=== PATIENT | female | born 1970 | race Caucasian/White ===

== ENCOUNTER 2017-11-06 12:56 | Emergency (ER) | payer OTHER ==
[2017-11-06] MEDS ORDERED: IBUPROFEN 600 MG TAB PO STA (13:29)
--- NOTE | 2017-11-06 13:32 | ED ---
General Adult HPI - General Chief complaint: Headache Stated complaint: Weakness, Headache, Nauseated Time Seen by Provider: 11/06/17 13:17 Source: patient, RN notes reviewed Mode of arrival: ambulatory Limitations: no limitations - History of Present Illness Initial comments: 47-year-old female presents to the emergency department with a chief complaint of cough congestion bodyaches headache. She states she just feels rundown and tired. She states she's had no nausea or vomiting with this. She states normal bowel movement bladder habits. Patient states that she just has not been feeling much better so she thought that she should be seen. Patient states that she started about 2 weeks ago feeling crappy, congestion bodyaches of gotten worse over the last 2 days. She has not noticed any high fevers. Patient denies any recent shortness of breath, chest pain, back pain, abdominal pain, nausea vomiting, numbness or tingling, dysuria or hematuria, constipation or diarrhea, visual changes, or any other current symptoms. - Related Data Home Medications Medication Instructions Recorded Confirmed Omeprazole [Omeprazole] 20 mg PO DAILY 04/23/16 11/06/17 Albuterol Inhaler [Ventolin Hfa 2 puff INHALATION RT-QID PRN 11/06/17 11/06/17 Inhaler] Ascorbic Acid [Vitamin C] 1,000 mg PO DAILY 11/06/17 11/06/17 Beclomethasone Dipropionate [Qvar 2 puff INHALATION RT-BID 11/06/17 11/06/17 80 mcg] Cholecalciferol (Vitamin D3) 2,000 unit PO DAILY 11/06/17 11/06/17 [Vitamin D3] Cold-Eeze 1 lozenge MUCOUS MEM DAILY PRN 11/06/17 11/06/17 Fluticasone Nasal [place] [Flonase 2 spr EA NOSTRIL DAILY 11/06/17 11/06/17 Nasal [place]] Gabapentin [Neurontin] 300 mg PO QID 11/06/17 11/06/17 HYDROcodone/APAP 10-325MG [[place] 1 tab PO Q8H PRN 11/06/17 11/06/17 10-325] Ipratropium-Albuterol Nebulize 3 ml INHALATION RT-TID PRN 11/06/17 11/06/17 [Duoneb 0.5 mg-3 mg/3 ml Soln] LORazepam [Ativan] 0.5 mg PO TID 11/06/17 11/06/17 Levothyroxine Sodium [Synthroid] 25 mcg PO QAM 11/06/17 11/06/17 Magnesium Oxide [Mag-Ox] 400 mg PO DAILY 11/06/17 11/06/17 Meloxicam 15 mg PO DAILY 11/06/17 11/06/17 Methocarbamol [Robaxin] 500 - 1,000 mg PO Q6H PRN 11/06/17 11/06/17 Montelukast [Singulair] 10 mg PO DAILY 11/06/17 11/06/17 Polyethylene Glycol 3350 [Clearlax] 17 gm PO DAILY 11/06/17 11/06/17 buPROPion HCL [Wellbutrin XL] 300 mg PO DAILY 11/06/17 11/06/17 traZODone HCL 50 mg PO HS 11/06/17 11/06/17 Previous Rx's Medication Instructions Recorded Oseltamivir [Tamiflu] 75 mg PO Q12HR #10 cap 11/06/17 Allergies Allergy/AdvReac Type Severity Reaction Status Date / Time No Known Allergies Allergy Verified 11/06/17 13:59 Review of Systems ROS Statement: Those systems with pertinent positive or pertinent negative responses have been documented in the HPI. ROS Other: All systems not noted in ROS Statement are negative. Past Medical History Past Medical History: COPD, Fibromyalgia, Osteoarthritis (OA) Additional Past Medical History / Comment(s): neck pain, back pain, carpal tunnel History of Any Multi-Drug Resistant Organisms: None Reported Past Surgical History: Orthopedic Surgery Past Psychological History: Anxiety, Depression Smoking Status: Never smoker Past Alcohol Use History: None Reported Past Drug Use History: Marijuana General Exam - General Exam Comments Initial Comments: General exam: Alert, active, comfortable in no apparent distress Head: Normocephalic Eyes: Normal reaction of pupils, equal size, normal range of extraocular motion Ears: normal external ear canals, pink tympanic membranes with normal cone of light Nose: clear with pink turbinates Throat: no erythema or exudates with normal sized tonsils Neck: no masses, no nuchal rigidity Chest: no chest wall deformity Lungs: equal air entry with no crackles or wheeze CVS: S1 and S2 normal with no audible mumurs, regular rhythm Abdomen: no hepatosplenomegaly, normal bowel sounds, no guarding or rigidity Spine: no scoliosis or deformity Skin: no rashes Neurological: No focal deficits, tone is normal in all 4 extremities Limitations: no limitations Course Vital Signs 11/06/17 13:06 Temperature 98.8 F Pulse Rate 90 Respiratory 20 Rate Blood Pressure 123/90 O2 Sat by Pulse 98 Oximetry Medical Decision Making - Medical Decision Making 47 yo female presents for cough congestion and body aches. At this time patient is positive for influenza A. This time we will start her on Tamiflu. We did discuss follow-up return parameters all questions. Patient is in agreement this plan. All questions have been answered. She'll be discharged. - Lab Data Lab Results 11/06/17 Range/Units 13:36 Influenza Type A RNA Detected H (Not Detectd) Influenza Type B (PCR) Not Detected (Not Detectd) - Radiology Data Radiology results: report reviewed, image reviewed Disposition Clinical Impression: Influenza A Disposition: HOME SELF-CARE Condition: Stable Instructions: Influenza (ED) Additional Instructions: Please use medication as discussed. Please follow up with family doctor if symptoms have not improved over the next two days. Please return to the emergency room if your symptoms increase or worsen or for any other concerns. Prescriptions: Oseltamivir [Tamiflu] 75 mg PO Q12HR #10 cap Referrals: Ryan Mccoy MD [Primary Care Provider] - 1-2 days Time of Disposition: 14:25
--- NOTE | 2017-11-06 13:46 | XR ---
EXAMINATION TYPE: XR chest 2V DATE OF EXAM: 11/06/2017 COMPARISON: NONE TECHNIQUE: PA and lateral views submitted. HISTORY: cough FINDINGS: The lungs are clear and there is no pneumothorax, pleural effusion, or focal pneumonia. Postsurgica l change overlying the cervical spine. Arthropathy of the shoulders. Hyperinflation suggests COPD. Hy pertrophic and degenerative change of the spine. No overt failure. IMPRESSION: 1. No acute process. Correlate for COPD.
[2017-11-06 14:33] VITALS: BP 104/58; PULSE 78; RESP 16; TEMP 98.3
== END 2017-11-06 14:32 | disposition home or self-care (01) ==
LOC: EC 12:56
DX: J10.1 Influenza due to other identified influenza virus with other respiratory manifestations (principal); J44.9 Chronic obstructive pulmonary disease, unspecified; M79.7 Fibromyalgia; M19.90 Unspecified osteoarthritis, unspecified site; F32.9 Major depressive disorder, single episode, unspecified; F41.9 Anxiety disorder, unspecified; Z79.51 Long term (current) use of inhaled steroids; Z79.1 Long term (current) use of non-steroidal anti-inflammatories (NSAID); Z79.899 Other long term (current) drug therapy
CPT/HCPCS: 71046; 87502; 99284

== ENCOUNTER → 2018-09-27 | Outpatient (CLI) | payer OTHER ==
--- NOTE | 2018-09-27 15:42 | US ---
EXAMINATION TYPE: US pelvis complete transvag DATE OF EXAM: 09/27/2018 COMPARISON: CT CLINICAL HISTORY: N95.0 Post menopausal bleeding. Pt states episode of vaginal spotting/ LMP 2-3 year s ago/ Pt not on HRT's TECHNIQUE: Transvaginal (TV) and Transabdominal (TA) . Transabdominal sonographic images of the pel vis were acquired. Transvaginal sonographic images were medically necessary to better assess the fol lowing anatomy: Uterus, ovaries, endometrium Date of LMP: 2-3 years ago EXAM MEASUREMENTS: Uterus: 6.6 x 3.2 x 5.0 cm Endometrial Stripe: 0.5 cm Left Ovary: 1.7 x 1.4 x 1.4 cm 1. Uterus: Anteverted wnl 2. Endometrium: wnl 3. Right Ovary: Obscured by overlying bowel gas 4. Left Ovary: wnl 5. Bilateral Adnexa: wnl 6. Posterior cul-de-sac: wnl IMPRESSION: No distinct abnormality appreciated.
== END ==
LOC: RADUSWWP 14:27
PROVIDERS: ATTEND Obstetrics & Gynecology
DX: N95.0 Postmenopausal bleeding (principal)
CPT/HCPCS: 76830; 76856

== ENCOUNTER → 2018-10-22 | Outpatient (CLI) | payer OTHER ==
[2018-10-22 11:45] LABS: Basophils % (A) 0 %; Eosinophils # (A) 0.1 k/uL (0-0.7); Eosinophils % (A) 1 %; HCT 41.1 % (34.0-46.0); HGB 13.5 gm/dL (11.4-16.0); Lymphocytes # (A) 2.3 k/uL (1.0-4.8); Lymphocytes % (A) 31 %; MCH 30.5 pg (25.0-35.0); MCHC 32.8 g/dL (31.0-37.0); MCV 92.9 fL (80.0-100.0); Mean Platelet Volume 7.1; Monocytes # (A) 0.5 k/uL (0-1.0); Monocytes % (A) 7 %; Neutrophils # (A) 4.4 k/uL (1.3-7.7); Neutrophils % (A) 58 %; Platelet Count 242 k/uL (150-450); RBC 4.43 m/uL (3.80-5.40); RDW 13.4 % (11.5-15.5); WBC 7.6 k/uL (3.8-10.6)
== END ==
LOC: LABPAT 10:47
PROVIDERS: ATTEND Obstetrics & Gynecology
DX: Z01.812 Encounter for preprocedural laboratory examination (principal)
CPT/HCPCS: 36415; 85025

== ENCOUNTER 2018-11-04 10:53 | Day surgery (SDC) | payer OTHER ==
[2018-10-31 14:58] VITALS: BMI 29.9
[~2018-11-04 10:53] MED LIST: DEXAMETHASONE SOD PHOSPHATE 10 MG/ML 1 ML VIAL IV ONE; LACTATED RINGERS 1,000 ML IV SCH; LIDOCAINE 1% 20 ML VIAL (10MG/ML) FOR IV START INTRADERMA PRN; MIDAZOLAM (PF) 2 MG/2 ML VIAL IV PRN; Pre Op ABX Message 1 EACH MISC MISCELLANE ONE
[2018-11-04] MEDS ORDERED: LIDOCAINE 1% 20 ML VIAL (10MG/ML) FOR IV START SQ ONE (11:35)
[2018-11-04] MEDS ORDERED: ONDANSETRON 4 MG/2 ML VIAL IVP ONE ×2 (11:42→13:05)
--- NOTE | 2018-11-04 12:09 | P.HPOB ---
History of Present Illness H&P Date: 11/04/18 Chief Complaint: Postmenopausal bleeding Patient is a 48-year-old female who has had no menses in approximately 3 years but then in August began to have some vaginal bleeding. An ultrasound was ordered and did show a 5 mm lining which is minimally thickened but she did bleed shortly prior to her ultrasound therefore it may be falsely in her than what we expect. She is therefore scheduled for a D&C with hysteroscopy we did discuss possibility do an endometrial biopsy but she would prefer more definitive sampling. Risks/benefits/alternatives were discussed with the patient in detail and all questions were answered for her prior to proceeding to the operative room. Physical exam vital signs are stable and afebrile. Heart regular, lungs clear, extremities are without pain. Abdomen soft nontender pelvic exam is otherwise unremarkable. Past Medical History Past Medical History: Chest Pain / Angina, COPD, Fibromyalgia, GERD/Reflux, Osteoarthritis (OA), Thyroid Disorder Additional Past Medical History / Comment(s): heart tests came back ok per pt, insomnia, History of Any Multi-Drug Resistant Organisms: None Reported Past Surgical History: Cholecystectomy, Orthopedic Surgery, Tubal Ligation Additional Past Surgical History / Comment(s): cervical fusion, planter wart removed from rt foot Past Anesthesia/Blood Transfusion Reactions: Motion Sickness Smoking Status: Never smoker - Past Family History Brother(s) Family Medical History: Deep Vein Thrombosis (DVT) Medications and Allergies Home Medications Medication Instructions Recorded Confirmed Type Omeprazole 20 mg PO DAILY 04/23/16 11/04/18 History Albuterol Inhaler [Ventolin Hfa 2 puff INHALATION QID PRN 11/06/17 11/04/18 History Inhaler] Cholecalciferol (Vitamin D3) 2,000 unit PO DAILY 11/06/17 11/04/18 History [Vitamin D3] Fluticasone Nasal [place] [Flonase 2 spr EA NOSTRIL DAILY 11/06/17 11/04/18 History Nasal [place]] Gabapentin [Neurontin] 300 mg PO QID 11/06/17 11/04/18 History HYDROcodone/APAP 10-325MG [[place] 1 tab PO Q8H PRN 11/06/17 11/04/18 History 10-325] Ipratropium-Albuterol Nebulize 3 ml INHALATION TID PRN 11/06/17 11/04/18 History [Duoneb 0.5 mg-3 mg/3 ml Soln] LORazepam [Ativan] 0.5 mg PO TID 11/06/17 11/04/18 History Levothyroxine Sodium [Synthroid] 25 mcg PO QAM 11/06/17 11/04/18 History Magnesium Oxide [Mag-Ox] 400 mg PO DAILY 11/06/17 11/04/18 History Meloxicam 15 mg PO DAILY 11/06/17 11/04/18 History Methocarbamol [Robaxin] 500 - 1,000 mg PO Q6H PRN 11/06/17 11/04/18 History Montelukast [Singulair] 10 mg PO HS 11/06/17 11/04/18 History buPROPion HCL [Wellbutrin XL] 300 mg PO DAILY 11/06/17 11/04/18 History traZODone HCL 50 mg PO HS 11/06/17 11/04/18 History Allergies Allergy/AdvReac Type Severity Reaction Status Date / Time No Known Allergies Allergy Verified 11/04/18 11:05 Exam Osteopathic Statement: *. No significant issues noted on an osteopathic structural exam other than those noted in the History and Physical/Consult. Vital Signs Temp Pulse Resp BP Pulse Ox 11/04/18 11:43 77 16 94 L 11/04/18 11:22 98.8 F 80 16 113/73 94 L - OBG Physical Exam Breast: both: normal (no masses) Abdomen: bowel sounds normal, no diffuse tenderness, no bruit present, no guarding noted, no hepatomegaly, no splenomegaly, no mass Vulva: both: normal Vagina: normal moisture, no discharge Cervix: no lesion, no discharge Uterus: normal size, normal contour Adnexa: both: normal Anus/Rectum: normal perianal skin, no rectal mass, no hemorrhoids, heme negative
[2018-11-04] MEDS ORDERED: fentaNYL (PF) 50 MCG/ML 2 ML AMP ONE (12:20)
[2018-11-04] MEDS ORDERED: KETOROLAC 30 MG/ML 1 ML VIAL ONE (12:20)
[2018-11-04] MEDS ORDERED: PROPOFOL 10 MG/ML 20 ML VIAL IV ONE (12:20)
[2018-11-04] MEDS ORDERED: MIDAZOLAM 2 MG/2 ML VIAL ONE (12:20)
[2018-11-04] MEDS ORDERED: LIDOCAINE 1% INJ 10MG/ML (20 ML MDV) ONE (12:20)
[2018-11-04 12:59] VITALS: TEMP 97.7
[2018-11-04] MEDS: fentaNYL (PF) 50 MCG/ML 2 ML AMP IV PRN ×2 (12:59→13:19)
[2018-11-04 13:13] LABS: Appearance,Urine Clear (Clear); Bilirubin,Urine Negative (Negative); Blood,Urine Negative (Negative); Color,Urine Yellow; Glucose,Urine (UA) Negative (Negative); Ketones,Urine Negative (Negative); Leukocyte Esterase,Urine Negative (Negative); Nitrite,Urine Negative (Negative); PH, Urine 5.5 (5.0-8.0); Protein,Urine Negative (Negative); Specific Gravity,Urine 1.022 (1.001-1.035); Urobilinogen,Urine <2.0 mg/dL (<2.0)
--- NOTE | 2018-11-04 13:16 | P.OP ---
Date of Procedure: 11/04/18 Preoperative Diagnosis: Postmenopausal bleeding Postoperative Diagnosis: Same Procedure(s) Performed: D&C with hysteroscopy Anesthesia: ALEJANDRA Surgeon: Kody Wright Estimated Blood Loss (ml): 2 Pathology: other (Uterine curettings) Condition: stable Disposition: same day Operative Findings: No gross pathology visualized Description of Procedure: Patient was taken to the operating suite where a general anesthetic was found be adequate. She was prepped and draped in the normal sterile fashion and placed in the dorsal lithotomy position. Initially a weighted speculum was inserted into the vagina and into lip of cervix was identified and grasped with an Allis clamp. Cervix was then dilated and camera was inserted. No gross pathology was noted with this. Once completed sharp curettings of endometrium were obtained. This tissues collected placed on Telfa and sent to pathology for evaluation. All instruments were then removed. Sponge, lap, needle counts were all correct 2. Patient was then taken to the recovery room in stable and satisfactory condition. Plan - Discharge Summary Discharge Rx Participant: Yes New Discharge Prescriptions: New Ibuprofen [Motrin] 600 mg PO Q6HR PRN #30 tab PRN Reason: Pain Ondansetron Odt [Zofran Odt] 4 mg PO Q8HR PRN #10 tab PRN Reason: Nausea No Action Omeprazole 20 mg PO DAILY buPROPion HCL [Wellbutrin XL] 300 mg PO DAILY Methocarbamol [Robaxin] 500 - 1,000 mg PO Q6H PRN PRN Reason: Muscle Spasm Gabapentin [Neurontin] 300 mg PO QID traZODone HCL 50 mg PO HS Montelukast [Singulair] 10 mg PO HS Meloxicam 15 mg PO DAILY Magnesium Oxide [Mag-Ox] 400 mg PO DAILY Fluticasone Nasal [place] [Flonase Nasal [place]] 2 spr EA NOSTRIL DAILY Ipratropium-Albuterol Nebulize [Duoneb 0.5 mg-3 mg/3 ml Soln] 3 ml INHALATION TID PRN PRN Reason: sob Cholecalciferol (Vitamin D3) [Vitamin D3] 2,000 unit PO DAILY Albuterol Inhaler [Ventolin Hfa Inhaler] 2 puff INHALATION QID PRN PRN Reason: sob Levothyroxine Sodium [Synthroid] 25 mcg PO QAM LORazepam [Ativan] 0.5 mg PO TID HYDROcodone/APAP 10-325MG [[place] 10-325] 1 tab PO Q8H PRN PRN Reason: Pain Discharge Medication List Omeprazole 20 mg PO DAILY 04/23/16 [History] Albuterol Inhaler [Ventolin Hfa Inhaler] 2 puff INHALATION QID PRN 11/06/17 [ History] Cholecalciferol (Vitamin D3) [Vitamin D3] 2,000 unit PO DAILY 11/06/17 [History] Fluticasone Nasal [place] [Flonase Nasal [place]] 2 spr EA NOSTRIL DAILY 11/06/17 [ History] Gabapentin [Neurontin] 300 mg PO QID 11/06/17 [History] HYDROcodone/APAP 10-325MG [[place] 10-325] 1 tab PO Q8H PRN 11/06/17 [History] Ipratropium-Albuterol Nebulize [Duoneb 0.5 mg-3 mg/3 ml Soln] 3 ml INHALATION TID PRN 11/06/17 [History] LORazepam [Ativan] 0.5 mg PO TID 11/06/17 [History] Levothyroxine Sodium [Synthroid] 25 mcg PO QAM 11/06/17 [History] Magnesium Oxide [Mag-Ox] 400 mg PO DAILY 11/06/17 [History] Meloxicam 15 mg PO DAILY 11/06/17 [History] Methocarbamol [Robaxin] 500 - 1,000 mg PO Q6H PRN 11/06/17 [History] Montelukast [Singulair] 10 mg PO HS 11/06/17 [History] buPROPion HCL [Wellbutrin XL] 300 mg PO DAILY 11/06/17 [History] traZODone HCL 50 mg PO HS 11/06/17 [History] Ibuprofen [Motrin] 600 mg PO Q6HR PRN #30 tab 11/04/18 [Rx] Ondansetron Odt [Zofran Odt] 4 mg PO Q8HR PRN #10 tab 11/04/18 [Rx] Follow up Appointment(s)/Referral(s): Kody Wright DO [Doctor of Osteopathic Medicine] - 1 Week Activity/Diet/Wound Care/Special Instructions: No heavy lifting, limit stairs and driving today and pelvic rest. If any high temperatures, heavy bleeding, or severe pain call my office Discharge Disposition: HOME SELF-CARE
[2018-11-04 13:37] VITALS: RESP 16
[2018-11-04 14:14] VITALS: BP 117/75; PULSE 80
== END 2018-11-04 14:36 | disposition home or self-care (01) ==
LOC: OR 10:53
PROVIDERS: ATTEND Obstetrics & Gynecology
DX: N95.0 Postmenopausal bleeding (principal); E07.9 Disorder of thyroid, unspecified; G47.00 Insomnia, unspecified; J44.9 Chronic obstructive pulmonary disease, unspecified; K21.9 Gastro-esophageal reflux disease without esophagitis; M19.90 Unspecified osteoarthritis, unspecified site; M79.7 Fibromyalgia; Z90.49 Acquired absence of other specified parts of digestive tract; Z98.51 Tubal ligation status; Z79.899 Other long term (current) drug therapy; Z79.51 Long term (current) use of inhaled steroids; Z79.890 Hormone replacement therapy; Z79.891 Long term (current) use of opiate analgesic
CPT/HCPCS: 81025; 88305; 81003; 58558; J2250 ×2; J1100; J2405; J2001; J3010; J1885; J2704

== ENCOUNTER 2020-01-07 02:18 | Emergency (ER) | payer OTHER ==
[2020-01-07 02:27] VITALS: TEMP 98.5
[2020-01-07] MEDS ORDERED: SODIUM CHLORIDE 0.9% 1,000 ML IV STA ×2 (02:32)
--- NOTE | 2020-01-07 02:39 | ED ---
Abdominal Pain HPI - General Chief Complaint: Abdominal Pain Stated Complaint: RLQ pain Time Seen by Provider: 01/07/20 02:21 Source: patient, RN notes reviewed, old records reviewed Mode of arrival: ambulatory Limitations: no limitations - History of Present Illness Initial Comments: This is a for 10-year-old female DF for evaluation of pain right lower quadrant right-sided abdominal pain currently and right leg worse when she moves her right leg. Note, her injury noted in the right hip. Falls. No loss of bowel or bladder no issues of bowel or bladder, mother pain or blood. Mild nausea no vomiting no fevers. Patient is a gallbladder surgery otherwise no abdominal surgeries. She does admit to tubal ligation MD Complaint: abdominal pain (Right lower quadrant) -: hour(s) Location: RLQ Radiation: R flank Migration to: suprapubic Severity: moderate Severity scale (1-10): 7 Quality: stabbing, aching Consistency: constant Improves With: nothing Worsens With: nothing Associated Symptoms: nausea, constipation - Related Data Home Medications Medication Instructions Recorded Confirmed Omeprazole 20 mg PO DAILY 04/23/16 11/04/18 Albuterol Inhaler ([place]) [Ventolin 2 puff INHALATION QID PRN 11/06/17 11/04/18 Hfa Inhaler] Cholecalciferol (Vitamin D3) 2,000 unit PO DAILY 11/06/17 11/04/18 [Vitamin D3] Fluticasone Nasal [place] [Flonase 2 spr EA NOSTRIL DAILY 11/06/17 11/04/18 Nasal [place]] Gabapentin [Neurontin] 300 mg PO QID 11/06/17 11/04/18 HYDROcodone/APAP 10-325MG [[place] 1 tab PO Q8H PRN 11/06/17 11/04/18 10-325] Ipratropium-Albuterol Nebulize 3 ml INHALATION TID PRN 11/06/17 11/04/18 [Duoneb 0.5 mg-3 mg/3 ml Soln] LORazepam [Ativan] 0.5 mg PO TID 11/06/17 11/04/18 Levothyroxine Sodium [Synthroid] 25 mcg PO QAM 11/06/17 11/04/18 Magnesium Oxide [Mag-Ox] 400 mg PO DAILY 11/06/17 11/04/18 Meloxicam 15 mg PO DAILY 11/06/17 11/04/18 Methocarbamol [Robaxin] 500 - 1,000 mg PO Q6H PRN 11/06/17 11/04/18 Montelukast [Singulair] 10 mg PO HS 11/06/17 11/04/18 buPROPion HCL [Wellbutrin XL] 300 mg PO DAILY 11/06/17 11/04/18 traZODone HCL 50 mg PO HS 11/06/17 11/04/18 Previous Rx's Medication Instructions Recorded Ibuprofen [Motrin] 600 mg PO Q6HR PRN #30 tab 11/04/18 Ondansetron Odt [Zofran Odt] 4 mg PO Q8HR PRN #10 tab 11/04/18 Allergies Allergy/AdvReac Type Severity Reaction Status Date / Time No Known Allergies Allergy Verified 01/07/20 02:27 Review of Systems ROS Statement: Those systems with pertinent positive or pertinent negative responses have been documented in the HPI. ROS Other: All systems not noted in ROS Statement are negative. Past Medical History Past Medical History: COPD, Fibromyalgia, Osteoarthritis (OA) Additional Past Medical History / Comment(s): neck pain, back pain, carpal tunnel History of Any Multi-Drug Resistant Organisms: None Reported Past Surgical History: Orthopedic Surgery Past Psychological History: Anxiety, Depression Smoking Status: Never smoker Past Alcohol Use History: None Reported Past Drug Use History: None Reported General Exam Limitations: no limitations General appearance: alert, in no apparent distress Head exam: Present: atraumatic, normocephalic, normal inspection Eye exam: Present: normal appearance, PERRL, EOMI. Absent: scleral icterus, conjunctival injection, periorbital swelling ENT exam: Present: normal exam, mucous membranes moist Neck exam: Present: normal inspection. Absent: tenderness, meningismus, lymphadenopathy Respiratory exam: Present: normal lung sounds bilaterally. Absent: respiratory distress, wheezes, rales, rhonchi, stridor Cardiovascular Exam: Present: regular rate, normal rhythm, normal heart sounds. Absent: systolic murmur, diastolic murmur, rubs, gallop, clicks GI/Abdominal exam: Present: soft, tenderness (Right lower quadrant), normal bowel sounds. Absent: distended, guarding, rebound, rigid Extremities exam: Present: normal inspection, full ROM, normal capillary refill. Absent: tenderness, pedal edema, joint swelling, calf tenderness Back exam: Present: normal inspection Neurological exam: Present: alert, oriented X3, CN II-XII intact Psychiatric exam: Present: normal affect, normal mood Skin exam: Present: warm, dry, intact, normal color. Absent: rash Course Vital Signs 01/07/20 02:25 Temperature 98.5 F Pulse Rate 79 Respiratory 20 Rate Blood Pressure 130/92 O2 Sat by Pulse 96 Oximetry - Reevaluation(s) Reevaluation #1: 01/07/20 04:11 Medical record is reviewed Reevaluation #2: 01/07/20 04:25 Patient has adequate symptom management Reevaluation #3: 01/07/20 04:25 Patient informed of results, will return if symptoms continue to worsen Medical Decision Making - Medical Decision Making 50 female nonspecific abdominal pain. Computed tomography scan and labwork are negative. Patient can be discharged home - Lab Data Result diagrams: 01/07/20 02:50 01/07/20 02:50 Lab Results 01/07/20 01/07/20 01/07/20 Range/Units 02:50 02:50 02:50 WBC 14.5 H (3.8-10.6) k/uL RBC 4.68 (3.80-5.40) m/uL Hgb 14.4 (11.4-16.0) gm/dL Hct 43.3 (34.0-46.0) % MCV 92.4 (80.0-100.0) fL MCH 30.8 (25.0-35.0) pg MCHC 33.3 (31.0-37.0) g/dL RDW 14.2 (11.5-15.5) % Plt Count 258 (150-450) k/uL Neutrophils % 70 % Lymphocytes % 22 % Monocytes % 5 % Eosinophils % 1 % Basophils % 0 % Neutrophils # 10.2 H (1.3-7.7) k/uL Lymphocytes # 3.2 (1.0-4.8) k/uL Monocytes # 0.7 (0-1.0) k/uL Eosinophils # 0.1 (0-0.7) k/uL Basophils # 0.0 (0-0.2) k/uL Sodium 138 (137-145) mmol/L Potassium 4.2 (3.5-5.1) mmol/L Chloride 104 (98-107) mmol/L Carbon Dioxide 26 (22-30) mmol/L Anion Gap 8 mmol/L BUN 12 (7-17) mg/dL Creatinine 0.62 (0.52-1.04) mg/dL Est GFR (CKD-EPI)AfAm >90 (>60 ml/min/1.73 sqM) Est GFR (CKD-EPI)NonAf >90 (>60 ml/min/1.73 sqM) Glucose 110 H (74-99) mg/dL Plasma Lactic Acid Ryan (0.7-2.0) mmol/L Calcium 9.5 (8.4-10.2) mg/dL Total Bilirubin 0.3 (0.2-1.3) mg/dL AST 19 (14-36) U/L ALT 13 (4-34) U/L Alkaline Phosphatase 93 (38-126) U/L Total Protein 7.5 (6.3-8.2) g/dL Albumin 4.6 (3.5-5.0) g/dL Amylase 51 (30-110) U/L Lipase 94 (23-300) U/L Urine Color Yellow Urine Appearance Clear (Clear) Urine pH 7.0 (5.0-8.0) Ur Specific [place] 1.023 (1.001-1.035) Urine Protein Trace H (Negative) Urine Glucose (UA) Negative (Negative) Urine Ketones Negative (Negative) Urine Blood Negative (Negative) Urine Nitrite Negative (Negative) Urine Bilirubin Negative (Negative) Urine Urobilinogen 2.0 (<2.0) mg/dL Ur Leukocyte Esterase Small H (Negative) Urine RBC 3 (0-5) /hpf Urine WBC 1 (0-5) /hpf Ur Squamous Epith Cells 4 (0-4) /hpf Urine Mucus Few H (None) /hpf 01/07/20 Range/Units 02:50 WBC (3.8-10.6) k/uL RBC (3.80-5.40) m/uL Hgb (11.4-16.0) gm/dL Hct (34.0-46.0) % MCV (80.0-100.0) fL MCH (25.0-35.0) pg MCHC (31.0-37.0) g/dL RDW (11.5-15.5) % Plt Count (150-450) k/uL Neutrophils % % Lymphocytes % % Monocytes % % Eosinophils % % Basophils % % Neutrophils # (1.3-7.7) k/uL Lymphocytes # (1.0-4.8) k/uL Monocytes # (0-1.0) k/uL Eosinophils # (0-0.7) k/uL Basophils # (0-0.2) k/uL Sodium (137-145) mmol/L Potassium (3.5-5.1) mmol/L Chloride (98-107) mmol/L Carbon Dioxide (22-30) mmol/L Anion Gap mmol/L BUN (7-17) mg/dL Creatinine (0.52-1.04) mg/dL Est GFR (CKD-EPI)AfAm (>60 ml/min/1.73 sqM) Est GFR (CKD-EPI)NonAf (>60 ml/min/1.73 sqM) Glucose (74-99) mg/dL Plasma Lactic Acid Ryan 1.1 (0.7-2.0) mmol/L Calcium (8.4-10.2) mg/dL Total Bilirubin (0.2-1.3) mg/dL AST (14-36) U/L ALT (4-34) U/L Alkaline Phosphatase (38-126) U/L Total Protein (6.3-8.2) g/dL Albumin (3.5-5.0) g/dL Amylase (30-110) U/L Lipase (23-300) U/L Urine Color Urine Appearance (Clear) Urine pH (5.0-8.0) Ur Specific [place] (1.001-1.035) Urine Protein (Negative) Urine Glucose (UA) (Negative) Urine Ketones (Negative) Urine Blood (Negative) Urine Nitrite (Negative) Urine Bilirubin (Negative) Urine Urobilinogen (<2.0) mg/dL Ur Leukocyte Esterase (Negative) Urine RBC (0-5) /hpf Urine WBC (0-5) /hpf Ur Squamous Epith Cells (0-4) /hpf Urine Mucus (None) /hpf Disposition Clinical Impression: Abdominal pain Disposition: HOME SELF-CARE Condition: Good Instructions (If sedation given, give patient instructions): Abdominal Pain (ED) Is patient prescribed a controlled substance at d/c from ED?: No Referrals: Kut,Ryan A, MD [Primary Care Provider] - 1-2 days
[2020-01-07] MEDS ORDERED: MORPHINE SULFATE 4 MG/ML SYRINGE IVP STA (02:40)
[2020-01-07 03:13] LABS: Basophils % (A) 0 %; Eosinophils # (A) 0.1 k/uL (0-0.7); Eosinophils % (A) 1 %; HCT 43.3 % (34.0-46.0); HGB 14.4 gm/dL (11.4-16.0); Lymphocytes # (A) 3.2 k/uL (1.0-4.8); Lymphocytes % (A) 22 %; MCH 30.8 pg (25.0-35.0); MCHC 33.3 g/dL (31.0-37.0); MCV 92.4 fL (80.0-100.0); Mean Platelet Volume 9.2; Monocytes # (A) 0.7 k/uL (0-1.0); Monocytes % (A) 5 %; Neutrophils # (A) 10.2 k/uL (1.3-7.7); Neutrophils % (A) 70 %; Platelet Count 258 k/uL (150-450); RBC 4.68 m/uL (3.80-5.40); RDW 14.2 % (11.5-15.5); WBC 14.5 k/uL (3.8-10.6)
[2020-01-07 03:22] LABS: ALT 13 U/L (4-34); AST 19 U/L (14-36); African American GFR (CKD) >90 (>60 ml/min/1.73 sqM); Albumin 4.6 g/dL (3.5-5.0); Alkaline Phosphatase 93 U/L (38-126); Amylase 51 U/L (30-110); Anion Gap 8 mmol/L; Blood Urea Nitrogen 12 mg/dL (7-17); Calcium 9.5 mg/dL (8.4-10.2); Carbon Dioxide 26 mmol/L (22-30); Chloride 104 mmol/L (98-107); Glucose 110 mg/dL (74-99); Non-African American GFR(CKD) >90 (>60 ml/min/1.73 sqM); Potassium 4.2 mmol/L (3.5-5.1); Sodium 138 mmol/L (137-145); Total Bilirubin 0.3 mg/dL (0.2-1.3); Total Protein 7.5 g/dL (6.3-8.2)
[2020-01-07 03:23] LABS: Appearance,Urine Clear (Clear); Bilirubin,Urine Negative (Negative); Blood,Urine Negative (Negative); Color,Urine Yellow; Glucose,Urine (UA) Negative (Negative); Ketones,Urine Negative (Negative); Leukocyte Esterase,Urine Small (Negative); Mucus,Urine Few /hpf; Nitrite,Urine Negative (Negative); Protein,Urine Trace (Negative); RBC,Urine 3 /hpf (0-5); Specific Gravity,Urine 1.023 (1.001-1.035); Squamous Epithelial Cell,Urine 4 /hpf (0-4); WBC,Urine 1 /hpf (0-5)
--- NOTE | 2020-01-07 04:12 | CT ---
EXAMINATION TYPE: CT abdomen pelvis w con DATE OF EXAM: 01/07/2020 COMPARISON: 07/02/2015 HISTORY: RLQ pain CT DLP: 1377.5 mGycm Automated exposure control for dose reduction was used. CONTRAST: Performed with IV Contrast, patient injected with 100mL mL of Isovue 300. Lung bases are clear. There is no pleural effusion. Heart size is normal. There is no pericardial eff usion. There are clips from cholecystectomy. Liver spleen stomach pancreas appear normal. Bile ducts are not dilated. There is no adrenal mass. Kidneys show satisfactory contrast opacification. There is no hydronephrosi s. Ureters are not dilated. Delayed images show normal renal excretion. There is no retroperitoneal a denopathy. Bladder distends smoothly. There is no inguinal hernia. There is no significant free fluid in the pelvis. Uterus is anteverted. Appendix is lateral and appears normal. There is no mesenteric edema. There is no ascites or free air . There is no bowel obstruction. Lumbar spine is intact. Bony pelvis is intact. IMPRESSION: Normal appendix. No renal stone or obstruction. No sign of acute abdomen and pelvis. No adverse aleman e compared to old exam.
[2020-01-07 04:55] VITALS: BP 136/83; PULSE 67; RESP 18
== END 2020-01-07 04:54 | disposition home or self-care (01) ==
LOC: EC 02:18
DX: R10.31 Right lower quadrant pain (principal); R11.0 Nausea; J44.9 Chronic obstructive pulmonary disease, unspecified; F41.9 Anxiety disorder, unspecified; F32.9 Major depressive disorder, single episode, unspecified; Z79.1 Long term (current) use of non-steroidal anti-inflammatories (NSAID); Z79.51 Long term (current) use of inhaled steroids; Z79.899 Other long term (current) drug therapy
CPT/HCPCS: 36415; 80053; 82150; 83605; 83690; 85025; 81001; 74177; 99284; 96374; 96361 ×2; J2270; Q9967

== ENCOUNTER → 2020-04-09 | Outpatient (CLI) | payer OTHER ==
--- NOTE | 2020-04-09 14:58 | US ---
EXAMINATION TYPE: US transvaginal DATE OF EXAM: 04/09/2020 COMPARISON: 09/27/2018 CLINICAL HISTORY: N83.20 PREV OVARIAN CYST. Hx of cysts TECHNIQUE: Transvaginal EXAM MEASUREMENTS: Uterus: 7.1 x 3.3 x 4.0 cm Endometrial Stripe: .7 cm 1. Uterus: Anteverted wnl 2. Endometrium: wnl 3. Right Ovary: Obscured by overlying bowel gas 4. Left Ovary: Obscured by overlying bowel gas 5. Bilateral Adnexa: wnl 6. Posterior cul-de-sac: wnl IMPRESSION: 1. No acute process.
== END | disposition home or self-care (01) ==
LOC: RADUSWWP 14:16
PROVIDERS: ATTEND Obstetrics & Gynecology
DX: N83.201 Unspecified ovarian cyst, right side (principal); Z32.01 Encounter for pregnancy test, result positive
CPT/HCPCS: 36415; 76830; 84702

== ENCOUNTER → 2022-11-24 | Outpatient (CLI) | payer OTHER ==
[2022-11-24 18:43] LABS: Basophils # (A) 0.03 X 10*3/uL (0.00-0.10); Basophils % (A) 0.4 %; Eosinophils # (A) 0.07 X 10*3/uL (0.04-0.35); Eosinophils % (A) 0.9 %; HCT 41.3 % (37.2-46.3); HGB 13.1 g/dL (12.0-15.0); Immature Grans, Automated 0.4 %; Lymphocytes # (A) 2.35 X 10*3/uL (0.90-5.00); Lymphocytes % (A) 30.7 %; MCHC 31.7 g/dL (32.0-37.0); MCV 94.5 fL (80.0-97.0); Mean Platelet Volume 11.9 fL (9.5-12.2); Monocytes # (A) 0.72 X 10*3/uL (0.20-1.00); Monocytes % (A) 9.4 %; NRBC Per 100 WBC 0 /100 WBCS (0.0-0.0); Neutrophils # (A) 4.46 X 10*3/uL (1.80-7.70); Neutrophils % (A) 58.2 %; Platelet Count 251 X 10*3/uL (140-440); RBC 4.37 X 10*6/uL (4.10-5.20); WBC 7.66 X 10*3/uL (4.50-10.00)
[2022-11-24 19:06] LABS: ALT 18 U/L (8-44); AST 19 U/L (13-35); African American GFR (CKD) 116.3 (60.0-200.0); Albumin 4.5 g/dL (3.8-4.9); Albumin/Globulin Ratio 1.73 (1.60-3.17); Alkaline Phosphatase 78 U/L (41-126); Blood Urea Nitrogen 14.7 mg/dL (9.0-27.0); Calcium 9.3 mg/dL (8.7-10.3); Carbon Dioxide 24.2 mmol/L (20.0-27.5); Chloride 104 mmol/L (96-109); Globulin 2.6 g/dL (1.6-3.3); Glucose 86 mg/dL (70-110); Non-African American GFR(CKD) 100.3 (60.0-200.0); Potassium 4.3 mmol/L (3.5-5.5); Sodium 143 mmol/L (135-145); Total Bilirubin <0.15 mg/dL (0.30-1.20); Total Protein 7.1 g/dL (6.2-8.2)
== END | disposition home or self-care (01) ==
LOC: LABWHC1 10:43
PROVIDERS: ATTEND Family Medicine
DX: Z00.00 Encounter for general adult medical examination without abnormal findings (principal); E55.9 Vitamin D deficiency, unspecified
CPT/HCPCS: 36415; 80053; 82306; 84443; 85025

== ENCOUNTER → 2023-09-05 | Outpatient (CLI) | payer OTHER ==
--- NOTE | 2023-09-05 12:19 | P.SLEEP ---
History of Present Illness DATE: 09/05/2023 CONSULTATION/NEW PATIENT EVALUATION HISTORY OF PRESENT ILLNESS/SLEEP-WAKE EVALUATION: 53 year old lady had been ev aluated in the sleep center for possible obstructive sleep apnea hypopnea syndrome. SLEEP SCHEDULE: Usually sleep schedule from 11 PM 8:11 AM. FALLING ASLEEP: Sometimes patient has difficulties with falling asleep. DURING SLEEP: Patient snores and wakes up up to 5 times with nocturia. No history of hypnogogical hallucinations, sleep paralysis, or cataplexy. DURING THE DAY/WAKE STATE: In the morning patient wake up tired, has difficulties to place attention, has problems with concentration. [place] sleepiness scale is significantly increased to 14. Patient may take up to several naps during the day. PAST MEDICAL HISTORY: PTSD, hypothyroidism, acid reflux, fibromyalgia, asthma. PAST SURGICAL HISTORY: Cholecystectomy, cervical fusion C4-T2. MEDICATIONS: Hydrocodone, omeprazole 20 mg once a day, Montellucast 20 mg once a day, levothyroxine 50 g once a day. SOCIAL HISTORY: Positive for smoking marijuana, alcohol consumption occasional. FAMILY HISTORY: Hypertension, heart problems, diabetes. REVIEW OF SYSTEMS: Snoring, multiple awakenings from sleep, sleepiness during the day. No fevers. No double vision. No recent chest pain. No shortness of breath. No abdominal pain. No bleeding episodes. No blood in urine. No seizure episodes. PHYSICAL EXAMINATION: GENERAL: A pleasant patient without any distress. VITAL SIGNS: BP 157/82, HR 70, RR 16, weight 210 pounds, height 5 foot 5 inches, body mass index 34.9. HEENT: PERRLA, EOMI. Evaluation of oropharynx showed tongue protrudes midline, low position of soft palate Mallampati 23. NECK: Supple. No JVD. Thyroid is not palpable. 15 inches in circumference. LUNGS: Clear to percussion and to auscultation. Good air exchange. No wheezing or rhonchi. HEART: S1, S2 regular. No murmurs, gallops or rubs. ABDOMEN: Soft and nontender. Bowel sounds are present. No organomegaly appreciated. EXTREMITIES: No clubbing or cyanosis. TAX RECORD CLERK: Awake, alert, and oriented x3. Cranial nerves 2 to 7 intact. There is no fasciculation or atrophy noted. No focal deficits observed. ASSESSMENT: 1. Snoring, multiple awakenings from sleep, significant excessive daytime sleepiness. Possible obstructive sleep apnea hypopnea syndrome. 2. Significant excessive daytime sleepiness with [place] Sleepiness Scale 14 dictated necessity to include the narcolepsy and differential diagnosis. 3. History of PTSD. 4. Hypothyroidism. 5 acid reflux. 6 . Asthma. 7. Status post cervical fusion C4-T2. 8. Status post cholecystectomy. 9 . Status post tubal ligation. 10. Obesity, BMI 34.9. PLAN: 1. Polysomnography for evaluation of patient's breathing during sleep. 2. CPAP/BiPAP titration if sleep study confirms obstructive sleep apnea- hypopnea syndrome. Patient may need multiple sleep latency test if sleep study will be negative for obstructive sleep apnea hypopnea syndrome. 3. Preferable position during sleep on the side. 4. No driving if patient feels any sleepiness. Patient is aware of civil and criminal liability for unsafe driving. 5. Sleep hygiene with regular sleep time for at least 7.5-8 hours. 6. Watching and losing weight. Thank you very much for referring this patient for consultation. Sincerely, Masood Segovia MD, PhD, FAASM. Diplomat of [place] [employer], Sleep Medicine Board by [place] [employer] [place] [employer] [facility] [place] [facility] [place] Past Medical History Past Medical History: COPD, Fibromyalgia, Osteoarthritis (OA) Additional Past Medical History / Comment(s): neck pain, back pain, carpal tunnel History of Any Multi-Drug Resistant Organisms: None Reported Past Surgical History: Orthopedic Surgery Past Psychological History: Anxiety, Depression Past Alcohol Use History: None Reported Past Drug Use History: None Reported Medications and Allergies Home Medications Medication Instructions Recorded Confirmed Type Omeprazole 20 mg PO DAILY 04/23/16 11/04/18 History Albuterol Inhaler [Ventolin Hfa 2 puff INHALATION QID PRN 11/06/17 11/04/18 History Inhaler] Cholecalciferol (Vitamin D3) 2,000 unit PO DAILY 11/06/17 11/04/18 History [Vitamin D3] Fluticasone Nasal [place] [Flonase 2 spr EA NOSTRIL DAILY 11/06/17 11/04/18 History Nasal [place]] Gabapentin [Neurontin] 300 mg PO QID 11/06/17 11/04/18 History HYDROcodone/APAP 10-325MG [[place] 1 tab PO Q8H PRN 11/06/17 11/04/18 History 10-325] Ipratropium-Albuterol Nebulize 3 ml INHALATION TID PRN 11/06/17 11/04/18 History [Duoneb 0.5 mg-3 mg/3 ml Soln] LORazepam [Ativan] 0.5 mg PO TID 11/06/17 11/04/18 History Levothyroxine Sodium [Synthroid] 25 mcg PO QAM 11/06/17 11/04/18 History Magnesium Oxide [Mag-Ox] 400 mg PO DAILY 11/06/17 11/04/18 History Meloxicam 15 mg PO DAILY 11/06/17 11/04/18 History Montelukast [Singulair] 10 mg PO HS 11/06/17 11/04/18 History buPROPion HCL [Wellbutrin XL] 300 mg PO DAILY 11/06/17 11/04/18 History methocarbamoL [Robaxin] 500 - 1,000 mg PO Q6H PRN 11/06/17 11/04/18 History traZODone HCL 50 mg PO HS 11/06/17 11/04/18 History Ibuprofen [Motrin] 600 mg PO Q6HR PRN #30 tab 11/04/18 Rx Ondansetron Odt [Zofran Odt] 4 mg PO Q8HR PRN #10 tab 11/04/18 Rx Allergies Allergy/AdvReac Type Severity Reaction Status Date / Time No Known Allergies Allergy Verified 01/07/20 02:27 Sleep Note - Sleep Note Sleep Note: Temperature: Pulse Rate: Respiratory Rate: Blood Pressure: SpO2: Height: Weight: BMI: Neck Circumference:
== END ==
LOC: 3 N SLEEP 10:47
PROVIDERS: ATTEND Internal Medicine
DX: G47.33 Obstructive sleep apnea (adult) (pediatric) (principal); G47.419 Narcolepsy without cataplexy; F43.10 Post-traumatic stress disorder, unspecified; E03.9 Hypothyroidism, unspecified; K21.9 Gastro-esophageal reflux disease without esophagitis; J45.909 Unspecified asthma, uncomplicated; E66.9 Obesity, unspecified; Z90.49 Acquired absence of other specified parts of digestive tract; Z68.34 Body mass index [BMI] 34.0-34.9, adult; Z98.51 Tubal ligation status; Z98.1 Arthrodesis status; Z79.890 Hormone replacement therapy
CPT/HCPCS: 99211